=== PATIENT | female | born 1965 | race African-American/Black ===

== ENCOUNTER 2018-06-19 09:49 | Outpatient (CLI) | payer BC ==
[2018-06-19] MEDS ORDERED: IV NS 0.9% 250 ML IV ONE ×2 (11:33→13:38)
[2018-06-19] MEDS ORDERED: IOHEXOL-350 100 ML VIAL IV ONE ×3 (11:33→14:03)
[2018-06-19] MEDS ORDERED: CT SWABBABLE VALVE TRANS SET 1 EA INFUS.SET MC ONE (11:33)
[2018-06-19] MEDS ORDERED: METOPROLOL TARTRATE INJ 5 MG/5 ML AMPUL ONE ×2 (13:12→13:49)
[2018-06-19] MEDS ORDERED: NITROGLYCERIN 0.4 MG/TAB BOTTLE ONE (13:13)
== END 2018-06-19 23:59 | disposition home or self-care (01) ==
LOC: RAD 09:49
PROVIDERS: ATTEND Internal Medicine
DX: R00.2 Palpitations (principal); R55 Syncope and collapse; R07.9 Chest pain, unspecified
CPT/HCPCS: 75574; J3490 ×2; J7050 ×2; Q9967